=== PATIENT | female | born 1955 | race Caucasian/White ===

== ENCOUNTER 2018-09-13 14:56 | Emergency (ER) | payer OTHER ==
--- NOTE | 2018-09-13 15:42 | EDM.PDOC ---
ED HPI GENERAL MEDICAL PROBLEM - General Chief Complaint: Upper Extremity Injury/Pain Stated Complaint: FELL, HURT LEFT WRIST Time Seen by Provider: 09/13/18 15:38 Source of Information: Reports: Patient, Family, RN Notes Reviewed History Limitations: Reports: No Limitations - History of Present Illness INITIAL COMMENTS - FREE TEXT/NARRATIVE: 63-year-old female presents emergency department today with pain in her left wrist she slipped on ice had a fall on outstretched hand any pain with movement of the wrist with flexion and extension no tenderness at the elbow or shoulder no loss of consciousness no head injury Right Lower Arm Pain Score (Numeric/FACES): 1 - Related Data Allergies Allergy/AdvReac Type Severity Reaction Status Date / Time No Known Allergies Allergy Verified 09/13/18 15:13 Home Meds: Home Meds Calcium Carbonate [Calcium] 500 mg PO DAILY 09/13/18 [History] Cholecalciferol (Vitamin D3) [Vitamin D] 1 tab PO DAILY 09/13/18 [History] Multivitamin [Multivitamins] 1 cap PO DAILY 09/13/18 [History] Raloxifene [Evista] 60 mg PO DAILY 09/13/18 [History] Past Medical History HEENT History: Reports: Impaired Vision Musculoskeletal History: Reports: Osteoporosis - Infectious Disease History Infectious Disease History: Reports: Chicken Pox, Measles, Mumps - Past Surgical History Head Surgeries/Procedures: Reports: None HEENT Surgical History: Reports: Tonsillectomy Musculoskeletal Surgical History: Reports: None Social & Family History - Tobacco Use Smoking Status *Q: Never Smoker Second Hand Smoke Exposure: No - Caffeine Use Caffeine Use: Reports: Coffee - Recreational Drug Use Recreational Drug Use: No Review of Systems - Review of Systems Review Of Systems: See Below Musculoskeletal: Reports: Joint Pain (Wrist pain) Neurological: Reports: No Symptoms ED EXAM, GENERAL - Physical Exam Exam: See Below Free Text/Narrative:: Examination left wrist I don't appreciate any edema there is no erythema noted she has limited range of motion with flexion and extension of the wrist radial pulse is +2 there is full range of motion of all digits there is no tenderness to elbow or shoulder on the left side Exam Limited By: No Limitations General Appearance: Alert, WD/WN, No Apparent Distress Course - Vital Signs Last Recorded V/S: Last Vital Signs Temp 97.7 F 09/13/18 15:16 Pulse 74 09/13/18 15:16 Resp 16 09/13/18 15:16 BP 150/79 H 09/13/18 15:16 Pulse Ox 98 09/13/18 15:16 Departure - Departure Time of Disposition: 16:23 Disposition: Home, Self-Care 01 Condition: Fair Clinical Impression: Distal radius fracture, left Qualifiers: Encounter type: initial encounter Fracture type: closed Fracture morphology: unspecified fracture morphology Qualified Code(s): S52.502A - Unspecified fracture of the lower end of left radius, initial encounter for closed fracture - Discharge Information Referrals: PCP,None [Primary Care Provider] - Forms: ED Department Discharge Additional Instructions: Continue to use the wrist splint until reevaluated by orthopedics, use Tylenol or Motrin as needed for pain control, follow-up with your primary care orthopedics provider upon return home - Assessment/Plan Plan: Assessment Acuity = acute Site and laterality = nondisplaced distal radius fracture Etiology = secondary to fall on outstretched hand Manifestations = none Location of injury = Home Lab values = x-ray describes fracture above Plan She is placed in a wrist splint tolerable Motrin as day for pain control CV was provided with images she will follow-up with her primary care upon return home to [facility] This note was dictated using [employer] voice recognition software please call with any questions on syntax or grammar.
--- NOTE | 2018-09-13 16:03 | CRLCR ---
INDICATION: Pain after fall. TECHNIQUE: Three views left wrist. IMPRESSION: Subtle transverse nondisplaced fracture of the distal radial metaphysis with likely intra-articular extension to the distal radioulnar joint but not definitively into the radiocarpal joint. No ulnar fracture. Low-grade osteoarthritis narrowing radiocarpal joint at the scaphoid fossa. 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 Marginal osteophytes and small ossicles. Low-grade osteoarthritis triscaphe joint. Dictated by Nayan Barrera MD @ Sep 13 2018 4:01PM Signed by Dr. Nayan Barrera @ Sep 13 2018 4:02PM
== END 2018-09-13 16:37 | disposition home or self-care (01) ==
LOC: JP.ED 14:56
DX: S52.502A Unspecified fracture of the lower end of left radius, initial encounter for closed fracture (principal); Z79.899 Other long term (current) drug therapy; W00.0XXA Fall on same level due to ice and snow, initial encounter
CPT/HCPCS: 73110-LT; 99283-25

== ENCOUNTER 2021-09-14 18:24 | Inpatient (IN) | payer MEDICARE ==
[2021-09-14] MEDS ORDERED: Aluminum Hydroxide/Magnesium Hydroxide/Simethicone Susp 30 ML Cup PO PRN (19:21)
[2021-09-14 19:29] LABS: CORONAVIRUS COVID-19 NAA NEGATIVE (NEGATIVE)
[2021-09-14] MEDS ORDERED: Pantoprazole 40 MG Vial IVPUSH SCH (20:00)
[2021-09-14] MEDS ORDERED: Acetaminophen Soln 650 MG/20.3 ML UD Cup PO PRN (20:00)
[2021-09-14] MEDS ORDERED: Acetaminophen 650 MG Supp RECTAL PRN (20:00)
[2021-09-14] MEDS: Ampicillin/Sulbactam Na 3 GM in Sodium Chloride 0.9% 100 ML IV SCH (20:16)
[2021-09-14] MEDS: Dextrose 5%-Lactated Ringers 1,000 ML IV SCH (20:17)
[2021-09-14] MEDS: HYDROmorphone 1 MG/ML Syringe IVPUSH PRN (23:19)
[2021-09-15] MEDS: Ampicillin/Sulbactam Na 3 GM in Sodium Chloride 0.9% 100 ML IV SCH ×4 (02:05→19:14)
[2021-09-15] MEDS: Dextrose 5%-Lactated Ringers 1,000 ML IV SCH ×2 (04:29→15:42)
[2021-09-15] MEDS: HYDROmorphone 1 MG/ML Syringe IVPUSH PRN (04:29)
[2021-09-15] MEDS ORDERED: Meropenem 500 MG SDV ONE (06:40)
[2021-09-15] MEDS ORDERED: Bupivacaine 0.5% 50 ML MDV ONE (06:40)
[2021-09-15] MEDS ORDERED: Lidocaine 1% with EPINEPHrine 1:100,000 50 ML MDV ONE (06:41)
[2021-09-15] MEDS ORDERED: fentaNYL 250 MCG/5 ML SDV ONE (07:02)
[2021-09-15] MEDS ORDERED: Succinylcholine 200 MG/10 ML MDV ONE (07:03)
[2021-09-15] MEDS ORDERED: Propofol 200 MG/20 ML SDV ONE (07:03)
[2021-09-15] MEDS ORDERED: Rocuronium 50 MG/5 ML Vial ONE (07:03)
[2021-09-15] MEDS ORDERED: Glycopyrrolate 0.2 MG/ML 5 ML MDV ONE (07:03)
[2021-09-15] MEDS ORDERED: Neostigmine Methylsulfate 1 MG/ML 5 ML Syringe ONE (07:03)
[2021-09-15] MEDS ORDERED: Ondansetron 4 MG/2 ML SDV ONE (07:03)
[2021-09-15] MEDS ORDERED: Dexamethasone 4 MG/ML SDV ONE (07:03)
[2021-09-15] MEDS ORDERED: Scopolamine 1.5 MG Transdermal Patch ONE (07:32)
[2021-09-15] MEDS ORDERED: Ropivacaine 22 ML, dexAMETHasone 8 MG, EPINEPHrine 0.4 MG, Sodium Chloride 0.9% 55.6 ML NERVRT SCH ×4 (08:00)
[2021-09-15] MEDS ORDERED: Bupivacaine 0.5%/EPINEPHrine 1:200,000 50 ML MDV ONE (08:02)
[2021-09-15] MEDS ORDERED: Lactated Ringers 1,000 ML ONE (08:04)
[2021-09-15] MEDS ORDERED: fentaNYL 100 MCG/2 ML SDV IVPUSH ONE (08:26)
[2021-09-15] MEDS ORDERED: hydrOXYzine HCL 100 MG/2 ML SDV IM ONE (08:26)
[2021-09-15] MEDS ORDERED: Cyclobenzaprine 10 MG Tab PO PRN (09:11)
[2021-09-15] MEDS ORDERED: Albuterol/Ipratropium 3.0-0.5 MG/3 ML Neb Soln INH PRN (09:13)
[2021-09-15] MEDS: SCOPOLAMINE PATCH CHECK TOP SCH (09:17)
[2021-09-15] MEDS ORDERED: Labetalol 20 MG/4 ML Syringe IVPUSH PRN (10:00)
[2021-09-15] MEDS ORDERED: Metoclopramide 10 MG/2 ML SDV IVPUSH PRN (10:00)
[2021-09-15] MEDS ORDERED: Raloxifene 60 MG Tab PO SCH (10:00)
[2021-09-15] MEDS ORDERED: diphenhydrAMINE 50 MG/ML SDV IVPUSH PRN (10:00)
[2021-09-15] MEDS ORDERED: Ondansetron 4 MG/2 ML SDV IVPUSH PRN (10:00)
[2021-09-15] MEDS ORDERED: hydrOXYzine HCL 100 MG/2 ML SDV IM PRN (10:00)
[2021-09-15] MEDS ORDERED: Pantoprazole 40 MG Vial IVPUSH SCH ×2 (10:00→21:00)
[2021-09-15] MEDS ORDERED: HYDROmorphone 1 MG/ML Syringe IV PRN (10:00)
[2021-09-15] MEDS ORDERED: traMADol 50 MG Tab PO PRN (10:00)
[2021-09-15] MEDS ORDERED: HYDROmorphone 0.5 MG/0.5 ML Syringe IVPUSH PRN (10:00)
[2021-09-15] MEDS ORDERED: Acetaminophen 500 MG Tab PO PRN (10:00)
[2021-09-15] MEDS: Acetaminophen 500 MG Tab PO SCH ×2 (12:10→18:54)
[2021-09-15] MEDS: MVI, Adult with Vitamin K 10 ML, Thiamine 200 MG, Zinc/Copper/Manganese/Selenium 1 ML i... IV SCH ×4 (16:40)
[2021-09-15] MEDS: Raloxifene 60 MG Tab PO SCH (20:23)
[2021-09-15] MEDS: oxyCODONE 5 MG Tab PO PRN (20:29)
[2021-09-16] MEDS: Acetaminophen 500 MG Tab PO SCH ×3 (02:08→17:27)
[2021-09-16] MEDS: Ampicillin/Sulbactam Na 3 GM in Sodium Chloride 0.9% 100 ML IV SCH ×4 (02:09→19:07)
[2021-09-16] MEDS: oxyCODONE 5 MG Tab PO PRN ×3 (02:16→19:07)
[2021-09-16] MEDS: Dextrose 5%-Lactated Ringers 1,000 ML IV SCH (06:24)
[2021-09-16] MEDS ORDERED: Dextrose 5%-Lactated Ringers 1,000 ML IV SCH (07:15)
[2021-09-16] MEDS: Magnesium Sulfate/Water 2 GM in Premix Bag 1 BAG IV SCH ×3 (07:57→20:27)
[2021-09-16] MEDS: Celecoxib 200 MG Cap PO SCH ×2 (08:04→20:00)
[2021-09-16] MEDS: Bisacodyl 5 MG Tab PO SCH ×2 (08:04→20:01)
[2021-09-16] MEDS: Docusate Sodium 100 MG Cap PO SCH ×2 (08:04→20:01)
[2021-09-16] MEDS: SCOPOLAMINE PATCH CHECK TOP SCH (08:07)
[2021-09-16] MEDS: MVI, Adult with Vitamin K 10 ML, Thiamine 200 MG, Zinc/Copper/Manganese/Selenium 1 ML i... IV SCH ×4 (15:54)
[2021-09-16] MEDS: Raloxifene 60 MG Tab PO SCH (20:00)
[2021-09-16] MEDS: Pantoprazole 40 MG Tab.CR PO SCH (20:00)
[2021-09-16] MEDS ORDERED: Haloperidol 5 MG Tab PO PRN (22:03)
[2021-09-17] MEDS: Ampicillin/Sulbactam Na 3 GM in Sodium Chloride 0.9% 100 ML IV SCH ×4 (03:33→19:42)
[2021-09-17] MEDS: Magnesium Sulfate/Water 2 GM in Premix Bag 1 BAG IV SCH ×4 (03:33→20:58)
[2021-09-17] MEDS: Acetaminophen 500 MG Tab PO SCH ×3 (03:34→18:27)
[2021-09-17] MEDS: Docusate Sodium 100 MG Cap PO SCH ×2 (09:15→21:05)
[2021-09-17] MEDS: Celecoxib 200 MG Cap PO SCH ×2 (09:15→21:05)
[2021-09-17] MEDS: SCOPOLAMINE PATCH CHECK TOP SCH (11:48)
[2021-09-17] MEDS: Raloxifene 60 MG Tab PO SCH (21:05)
[2021-09-17] MEDS: Pantoprazole 40 MG Tab.CR PO SCH (21:06)
[2021-09-18] MEDS: Ampicillin/Sulbactam Na 3 GM in Sodium Chloride 0.9% 100 ML IV SCH (01:21)
[2021-09-18] MEDS: Magnesium Sulfate/Water 2 GM in Premix Bag 1 BAG IV SCH (02:03)
[2021-09-18] MEDS: Acetaminophen 500 MG Tab PO SCH (02:03)
== END 2021-09-18 07:42 | disposition home or self-care (01) | DRG 331 ==
LOC: JP.ED 18:24 → JP.ICU 19:08 → JP.MS 09-16 21:57 → JP.ICU 09-16 22:01
PROVIDERS: ADMIT Surgery; ATTEND Surgery
PROC: 0DTJ4ZZ Resection of Appendix, Percutaneous Endoscopic Approach (ICD-10-PCS; principal; 2021-09-15)
PROC: 0DBH4ZZ Excision of Cecum, Percutaneous Endoscopic Approach (ICD-10-PCS; 2021-09-15)
DX: K35.890 Other acute appendicitis without perforation or gangrene (principal); K35.33 Acute appendicitis with perforation, localized peritonitis, and gangrene, with abscess; H54.7 Unspecified visual loss; M81.0 Age-related osteoporosis without current pathological fracture; Z20.822 Contact with and (suspected) exposure to COVID-19; Z86.19 Personal history of other infectious and parasitic diseases; Z98.890 Other specified postprocedural states; Z90.89 Acquired absence of other organs; Z79.899 Other long term (current) drug therapy
CPT/HCPCS: 0241U; 36415; 80053; 83735; 84100; 85025; 87070; 87075; 87077; 87186; 87205; 88304; 88305; 99284; A9270-GY; C9113; J0171; J0295; J0330; J1100; J1170; J2185; J2405; J2704; J2710; J2795; J3010; J3410; J3411; J3475; J3490; J7120; J7121

== ENCOUNTER 2025-01-02 03:08 | Emergency (ER) | payer MEDICARE ==
[2025-01-02] MEDS: Lidocaine 1% with EPINEPHrine 1:100,000 20 ML MDV INJECT ONE (04:11)
[2025-01-02] MEDS: Diphtheria,Pertussis(Acell),Tetanus Vaccine 0.5 ML Syringe IM ONE (04:14)
== END 2025-01-02 04:33 | disposition home or self-care (01) ==
LOC: JP.ED 03:08
DX: S01.01XA Laceration without foreign body of scalp, initial encounter (principal); Z88.8 Allergy status to other drugs, medicaments and biological substances; Z79.899 Other long term (current) drug therapy; Z23 Encounter for immunization; W01.198A Fall on same level from slipping, tripping and stumbling with subsequent striking against other object, initial encounter; Y93.89 Activity, other specified
CPT/HCPCS: 12001; 90471; 90715; 99283; J2004